=== PATIENT | female | born 1995 | race Caucasian/White ===

== ENCOUNTER 2017-01-07 18:26 | Emergency (ER) | payer OTHER ==
[~2017-01-07] VITALS: Ht 154.9 cm; Wt 50.0 kg
[2017-01-07 18:31] VITALS: BP 121/79; PULSE 91; RESP 16; O2SAT 100
[2017-01-07 18:51] LABS: BASOPHILS % (AUTO) 0.1 % (0-3); EOSINOPHILS % (AUTO) 0.2 % (0-5); MONOCYTES % (AUTO) 3.8 % (4-12); Mean Corpuscular Hemoglobin 30.4 pg (27.0-35.0); Mean Corpuscular Volume 89.2 fL (81-100); Platelet Count 233 bil/L (150-400)
[2017-01-07 19:19] LABS: Magnesium 1.9 mg/dL (1.6-2.6)
[2017-01-07 20:05] LABS: APPEARANCE,URINE CLEAR (CLEAR,HAZY); COLOR,URINE YELLOW (YELLOW); OCCULT BLOOD,URINE MODERATE (NEGATIVE); UROBILINOGEN,URINE NORMAL (NORMAL)
--- NOTE | 2017-01-07 20:36 | ED.REPORT ---
HPI-Abd Pain F Under 40 Date of Service Jan 07, 2017 ED Provider: Andrew Gutierrez MD This is a 21-year-old female who presents to the ED with complaint of abdominal pain. The pain is 8/10 and sharp which started today while at work she felt like she could not stand up. The pain does not radiate and is worse with movement. The pain was relieved with naproxen to 2/10. While she was walking to her car she experienced sudden dizziness associated with the pain and sat in her car for about 30 minutes for it to go away. She has had this happen to her twice in the past, the first episode 2 months ago and another episode 1 month ago. She did have an abdominal ultrasound done on December 20 which showed a left ovarian cyst and this was thought to be the cause of her pain. Her last menstrual cycle was one month ago and mentions that her cycle should be starting today or tomorrow. She has noted regular midcycle spotting over the last 2 months. She also notes some discomfort with urination today but says that this does not feel like previous UTIs. She did have an elective 3 years ago and a miscarriage 2 years ago. He denies any history of STDs and is in a monogamous relationship . She has no history of kidney stones but has family history of kidney stones. She denies fever, chills, cough, blood in stool, diarrhea, constipation, nausea and vomiting, chest pain and shortness of breath. Nursing Notes Stated Complaint: PAIN,FAINTING,SENT BY URGENT CARE Chief Complaint: Female Abdominal Pain Nursing Notes Reviewed: Yes Allergies: Coded Allergies: No Known Allergies (Unverified Allergy, Unknown, 01/07/17) General Time Seen by MD: 19:16 Chief Complaint Abdominal pain Hx Obtained From: Patient Past Medical History Patient History: Kidney stone Past Medical History A1 Past Surgical History Suction D&C Smoking History Current Every Day Smoker Social History Drug Use: Denies drug use Review of Systems Constitutional: Denies: Chills, Fatigue, Fever, Weakness - generalized Cardiovascular: Denies: Chest pain GI: Reports: Abdominal pain, Denies: Bloody/tarry stool, Constipation, Diarrhea, Melena, Vomiting Female: Reports: Vaginal bleeding - abnl, Denies: , Urinary frequency, Urinary urgency Complete sys rev & neg: except as marked. Physical Exam Initial Vital Signs Vital Signs (First) Date Time Temp Pulse Resp B/P Pulse Ox O2 Delivery O2 Flow Rate FiO2 01/07/17 18:31 37.2 91 16 121/79 100 Room Air Initial VS: Reviewed General/Constitutional: Awake, Alert, No acute distress, Well appearing, Cooperative, Not toxic appearing Respiratory / Chest: Breath sounds = bilat, No respiratory distress, No rales, No rhonchi, No wheezing Cardiovascular: Regular rhythm, No murmurs Abdomen: Soft, McBurney's non-tender, No guarding, BS normoactive, No palpable mass Tenderness/Guarding/Rebound: Positive: Tender LLQ... (Mild) Back: Straight leg raise neg, No CVA tenderness Head / Eyes: Atraumatic, Normocephalic Psychiatric: Affect NL, Mood NL, Judgment/insight NL Interpretation & Diagnostics Pelvic Ultrasound IMPRESSION: 1. Complex, mixed solid and cystic mass in the left ovary again noted. Differential diagnoses include hemorrhagic cyst, endometrioma, tubal ovarian abscess, and less likely ovarian neoplasm. Recommend continued followup. 2. There is a small amount of complex free fluid in pelvis superior to the left ovary. 3. Normal uterus and right ovary. Dictated by: Lamont Chaparro M.D. on 01/07/2017 at 21:05 Lab Results Interpretation Result Diagram: 01/07/17 1845 01/07/17 1845 Test 01/07/17 18:45 01/07/17 18:46 01/07/17 19:07 01/07/17 19:49 White Blood Count 14.2th/mm3 (3.8-10.1) Red Blood Count 4.61mil/mm3 (3.90-5.20) Hemoglobin 14.0g/dL (12.0-15.6) Hematocrit 41.1% (35.0-46.0) Mean Corpuscular Volume 89.2fL (81-100) Mean Corpuscular Hemoglobin 30.4pg (27.0-35.0) Mean Corpuscular Hemoglobin Concent 34.1% (32.0-37.0) Red Cell Distribution Width 13.4% (12.3-15.4) Platelet Count 233bil/L (150-400) Neutrophils (%) (Auto) 88.0% (40-74) Lymphocytes (%) (Auto) 7.8% (14-46) Monocytes (%) (Auto) 3.8% (4-12) Eosinophils (%) (Auto) 0.2% (0-5) Basophils (%) (Auto) 0.1% (0-3) Sodium Level 139mEq/L (134-144) Potassium Level 4.1mEq/L (3.5-5.2) Chloride Level 105mEq/L (97-108) Carbon Dioxide Level 20mmol/L (18-29) Blood Urea Nitrogen 9mg/dL (6-20) Creatinine 0.73mg/dL (0.57-1.00) Estimat Glomerular Filtration Rate 142mL/min (>59) Glucose Level 113mg/dL (60-99) Calcium Level 9.2mg/dL (8.5-10.1) Magnesium Level 1.9mg/dL (1.6-2.6) Total Bilirubin 0.2mg/dL (0.0-1.2) Aspartate Amino Transf (AST/SGOT) 19U/L (0-50) Alanine Aminotransferase (ALT/SGPT) 9U/L (0-32) Alkaline Phosphatase 68U/L (25-150) Total Protein 7.1g/dL (6.4-8.4) Albumin 4.5g/dL (3.4-5.0) Lipase 30U/L (13-60) Hold Mixon Top Tube Received (Received) Hold Urine Received (Received) Urine Color Yellow (YELLOW) Urine Appearance Clear (CLEAR,HAZY) Urine pH 6.0 (5.0-8.0) Urine Specific [place] <1.005 (1.003-1.035) Urine Protein Negativemg/dL (NEG,TRACE) Urine Glucose (UA) Negativemg/dL (NEGATIVE) Urine Ketones Negativemg/dL (NEGATIVE) Urine Occult Blood Moderate (NEGATIVE) Urine Nitrite Negative (NEGATIVE) Urine Bilirubin Negative (NEGATIVE) Urine Urobilinogen Normalmg/dL (NORMAL) Urine Leukocyte Esterase Negative (NEGATIVE) Urine RBC 0-2/hpf (0-2) Urine WBC 0-5/hpf (0-5) Urine Epithelial Cells Few/hpf (NONE-MOD) Urine Crystals None seen (NONE SEEN) Urine Bacteria Few/hpf (NONE-FEW) Urine Hyaline Casts None/lpf (NONE) Urine Granular Casts None seen (NONE SEEN) Urine Waxy Casts None seen (NONE SEEN) Urine Red Blood Cell Casts None seen (NONE SEEN) Urine White Blood Cell Casts None seen (NONE SEEN) Urine Mucus None seen (None Seen) Urine Trichomonas None seen (NONE SEEN) Urine Yeast None (NONE SEEN) Urinalysis Comment None Urine Culture Reflexed Not indicated CT Abd / Pelvis Interpretation CT abdomen and pelvis with contrast IMPRESSION: Tick mass in the pelvis on the left consistent with patients history of ovarian mass. In the proper clinical setting ultrasound should be considered for further evaluation. Re-Eval/Medical Decision Med Decision/Clinical Course This is a 21-year-old female with left ovarian cyst diagnosed December 20 by abdominal ultrasound, who presents to the ED with left lower quadrant abdominal pain. Her pain was relieved with naproxen and worse with movement. Differential includes ovarian torsion, ectopic , renal hernia, kidney stone, ruptured ovarian cyst. Patient was nontoxic-appearing on examination and displayed mild left lower quadrant tenderness. No clear signs per the history or exam that pointed towards one thing. Urine test was negative and urinalysis showed mild hematuria. She did have leukocytosis on CBC. Pelvic ultrasound was done to evaluate for the above processes, which showed left ovarian mass with pelvic fluid. CT abdomen and pelvis with contrast showed a 6 cm mass. No acute process was seen. It was recommended to patient to follow- up with gynecology in one week for this mass. Discharge & Departure Primary Impression: Ovarian mass, left Disposition: Home Discharge Condition All VS Reviewed: Yes Condition: Stable Additional Instructions: The CT scan shows you have a 6 cm mass on your left ovary. This is likely the cause of your pain. Follow up with Gynecology in 1 week for further evaluation and treatment. You may take tylenol or naproxen to help with the pain as needed. Referrals: [facility] (PCP) Albino Kovacs MD 1 Week Attending Statment The patient was seen and examined together with Dr. Castro on 01/07/17 and I agree with the history, exam and plan as outlined in the note above. copies to: Albino Kovacs MD, Malik A DO Jan 07, 2017 20:36 Andrew Gutierrez MD Jan 07, 2017 23:14
[2017-01-07 20:48] VITALS: BP 107/70; PULSE 72; O2SAT 100
[2017-01-07] MEDS ORDERED: Iohexol 300 mg/mL 30 mL Inj PO ONE (21:10)
--- NOTE | 2017-01-07 21:21 | DRSVH ---
PROCEDURE: US PELVIC SONOGRAM WITH DOPPLER, LIMITED INDICATIONS: pelvic pain TECHNIQUE: Real-time scanning was performed of the pelvic organs, with image documentation. Additional endovagi nal scanning was necessary due to incomplete visualization of the adnexal and endometrial structures by transabdominal scanning. COMPARISON: [facility], [place], PELVIC COMPLETE, 10/30/2014, 21:36. [facility], [place], PEL VIS SONO TRANSVAGINAL (PNL), 12/06/2014, 7:33. [facility], [place], US PELVIC+CAAMCHO SVAG, 12/20/2016, 12:54. FINDINGS: (orthogonal measurements) Uterus size: 7.77 cm, 4.26 cm, 5.40 cm Endometrium thickness: 4.40 mm Right ovary size: 2.94 cm, 1.98 cm, 2.99 cm Left ovary size: 6.20 cm, 5.24 cm, 5.15 cm Transabdominal scanning: Limited scanning through the kidneys shows no hydronephrosis. No pathologi c free abdominal or pelvic fluid. 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 Uterus is normal in size. Endometrium is within normal physio logic limits. Ovaries: Left ovary is enlarged. Complex cyst in left ovary measuring 4.3 x 3.9 x 3.8 cm. A solid, hy perechoic masslike area is noted in the left ovary, separate from the cystic mass measuring 4.5 cm, w hich demonstrates no internal flow on Doppler ultrasound. Left ovary is normal. There is a small amount of complex fluid superior to the left ovary. IMPRESSION: 1. Complex, mixed solid and cystic mass in the left ovary again noted. Differential diagnoses include hemorrhagic cyst, endometrioma, tubal ovarian abscess, and less likely ovarian neoplasm. Recommend c ontinued followup. 2. There is a small amount of complex free fluid in pelvis superior to the left ovary. 3. Normal uterus and right ovary. Dictated by: Lamont Chaparro M.D. on 01/07/2017 at 21:05 Approved by: Lamont Chaparro M.D. on 01/07/2017 at 21:20
[2017-01-07 23:36] VITALS: BP 113/67; PULSE 70; O2SAT 98
[2017-01-07 23:52] VITALS: BP 113/67; PULSE 70; RESP 16; O2SAT 98
--- NOTE | 2017-01-08 08:30 | DRSVH ---
PROCEDURE: CT ABDOMEN AND PELVIS WITH CONTRAST ([id number]) INDICATIONS: ovarian mass TECHNIQUE: After the administration of oral and intravenous contrast, 5 mm thick sections acquired from the diap hragms to the symphysis. 5 mm thick coronal and sagittal reformats were performed. For radiation do se reduction, the following was used: automated exposure control, adjustment of mA and/or kV accordi ng to patient size. COMPARISON: 12/20/2016 ultrasound. FINDINGS: Image quality: Excellent. ABDOMEN: Lung bases: Lung bases are clear. Heart size is normal. Solid organs: Liver and spleen are normal in size and enhancement. Gallbladder is radiographically normal. Biliary system is non-dilated. Pancreas enhances normally. No adrenal nodules. Kidneys ar e normal in size and enhancement, without hydronephrosis. Peritoneum and bowel: Stomach, small bowel, and colon loops are normal in caliber and wall thickness . Moderate stool throughout the colon. Normal appendix. No free fluid or air. Nodes and vessels: No retroperitoneal or mesenteric adenopathy. Aorta and inferior vena cava are no rmal in caliber. Miscellaneous: No ventral hernias. PELVIS: Genitourinary: Bladder wall thickness is normal. There is a left adnexal 6.7 x 4.8 x 4.8 CM low den sity mass with enhancing internal septations similar to the appearance of the 12/20/2016 ultrasound. Miscellaneous: No inguinal hernias or adenopathy. Bones: No suspicious bony lesions. No vertebral body compression fractures. IMPRESSION: 1. Low-density septated left adnexal mass may represent a complex ovarian hemorrhagic cyst, hydrosalp inx or abscess. Malignancy is unlikely given the patient's young age but cannot be excluded. Consider MRI with and without contrast as well as gynecology consultation for further evaluation. Please note , a mass of this size places the patient at risk for ovarian torsion. 2. There are no discrepancies with the preliminary report. Dictated by: Chao Rao M.D. on 01/08/2017 at 8:21 Approved by: Chao Rao M.D. on 01/08/2017 at 8:28
== END 2017-01-07 23:53 | disposition home or self-care (01) ==
LOC: SED 18:26
DX: N83.202 Unspecified ovarian cyst, left side (principal); R42 Dizziness and giddiness; F17.200 Nicotine dependence, unspecified, uncomplicated
CPT/HCPCS: 36415; 74177; 76856; 80053; 81000; 81025; 83690; 83735; 85025; 93976; 99284; Q9967